=== PATIENT | female | born 2000 | race African-American/Black ===

== ENCOUNTER 2022-04-10 14:12 | Emergency (ER) | payer MEDICAID, SELFPAY ==
--- NOTE | ~2022-04-10 | CT_ITS ---
EXAMINATION: CT brain wo con DATE: 04/10/2022 15:06 INDICATION: acute vision loss with RAYMOND . TECHNIQUE: Computed tomography (CT) of the head was performed without intravenous contrast. The mA wa s adjusted according to patient size. Iterative reconstruction technique was employed. The dose-lengt h product was 605.33 mGy-cm. COMPARISON: None. FINDINGS: No acute intracranial hemorrhage or extra-axial fluid collection. No hydrocephalus, mass, or herniation. No acute ischemic infarct. Unremarkable dural venous sinus attenuation. No acute osseous abnormality. The aerated spaces are clear. IMPRESSION: No acute intracranial process. Reviewed, dictated and finalized at location [facility] [employer]
[2022-04-10 14:30] VITALS: BP 141/90; PULSE 106; RESP 18; TEMP 36.6; O2SAT 100
--- NOTE | 2022-04-10 17:02 | ED.GENADULT ---
HPI - General Adult General Chief complaint: Neuro Symptoms/Deficit Stated complaint: loss of vision/resolved Time Seen by Provider: 04/10/22 16:26 History of Present Illness HPI narrative: 21-year-old female presented emergency department for evaluation of vision changes, arm numbness and headache. Patient reports prior to arrival she had approximately 10 minutes of vision change in her left eye fully resolved, this was then followed by 5 minutes of left arm tingling which also fully resolved. This was also then followed by a mild headache which has significantly improved. Upon arrival to the emergency department patient states she has no vision change and no associated tingling of the left hand. Patient reports that her headache is improved. Patient denies any prior history of migraine or stroke or underlying clotting disorder. Patient denies any other pain or complaints. Related Data Allergies Allergy/AdvReac Type Severity Reaction Status Date / Time No Known Allergies Allergy Verified 04/10/22 17:08 Review of Systems Review of Systems: All systems reviewed & are unremarkable except as noted in HPI and below Exam Narrative: APPEARANCE: Well appearing, no pain, no distress, well-nourished. HEAD: normocephalic, atraumatic. EYES: PERRLA/EOMI, conjunctivae clear. NOSE: Normal no drainage EARS:TMS clear with good light reflex. THROAT: Pharynx clear, no exudate. NECK: Supple. No adenopathy, no masses. RESPIRATORY: Airway patent, respirations nonlabored. Clear to auscultation bilaterally, no rales, rhonchi, wheezing. CARDIOVASCULAR: Regular rate and rhythm without murmurs rubs or gallops. ABDOMINAL: Soft, nontender, nondistended, normal bowel sounds MUSCULOSKELETAL: Moves all extremities. Strength/ROM intact, No edema, No calf tenderness. NEURO: Alert. Cranial nerves II through XII intact. Normal comprehensive neuro exam. Negative Romberg. Normal forward and backward tandem gait. No ataxia, no drift. Normal visual villa. SKIN: Warm, dry. Normal Color Course Course Emergency Course: Case was discussed with neurology and they were comfortable with the plan for follow-up. Patient's head CT was negative. Patient has full resolution of all neurologic symptoms. Patient's headache was resolved with migraine cocktail. On reevaluation patient states that her symptoms are completely resolved. Patient and family were updated on the importance of close follow-up with her primary care physician and to follow-up for an outpatient MRI. All questions and concerns were addressed and patient was comfortable with this plan. Differential diagnosis does include central venous thrombosis, stroke, complex migraine. With the normal exam and resolution of the patient's symptoms including headache complex migraine is most likely. Vital Signs Vital signs: Vital Signs Temperature 97.8 F 04/10/22 14:30 Pulse Rate 106 H 04/10/22 14:30 Respiratory Rate 18 04/10/22 14:30 Blood Pressure 141/90 H 04/10/22 14:30 Pulse Oximetry 100 04/10/22 14:30 Oxygen Delivery Room Air 04/10/22 14:30 Temperature 97.8 F 04/10/22 14:30 Pulse Rate 84 04/10/22 18:51 Respiratory Rate 14 04/10/22 18:51 Blood Pressure 124/76 04/10/22 18:51 Pulse Oximetry 100 04/10/22 18:51 Oxygen Delivery Room Air 04/10/22 14:30 Medical Decision Making Vital Signs Vital Signs: Vital Signs Temperature 97.8 F 04/10/22 14:30 Pulse Rate 106 H 04/10/22 14:30 Respiratory Rate 18 04/10/22 14:30 Blood Pressure 141/90 H 04/10/22 14:30 Pulse Oximetry 100 04/10/22 14:30 Oxygen Delivery Room Air 04/10/22 14:30 Temperature 97.8 F 04/10/22 14:30 Pulse Rate 84 04/10/22 18:51 Respiratory Rate 14 04/10/22 18:51 Blood Pressure 124/76 04/10/22 18:51 Pulse Oximetry 100 04/10/22 18:51 Oxygen Delivery Room Air 04/10/22 14:30 Imaging Data Radiologist's impression: Impressions Head CT 04/10/22 15:08 IM
[2022-04-10] MEDS: SODIUM CHLORIDE 0.9% IV 1,000 ML 999 ML IV CONT (17:20)
[2022-04-10] MEDS: diphenhydrAMINE HCl INJ 50 MG/ML VIAL 25 MG IV PUSH (17:20)
[2022-04-10] MEDS: PROCHLORPERAZINE EDISYLATE 10 MG/2 ML VIAL IV PUSH (17:22)
[2022-04-10 18:51] VITALS: BP 124/76; PULSE 84; RESP 14; O2SAT 100
== END 2022-04-10 18:52 | disposition home or self-care (01) ==
PROVIDERS: Emergency Provider Emergency Medicine
DX: G43.909 Migraine, unspecified, not intractable, without status migrainosus (principal)
CPT/HCPCS: 70450; 96361; 96374; 96375; 99284; J0780; J1200; J7030